=== PATIENT | male | born 1975 | race Two or more races ===

== ENCOUNTER 2020-11-08 13:19 | Outpatient (CLI) | payer MEDICARE, OTHER | END 2020-11-08 23:59 | disposition home or self-care (01) | LOC: WOU 13:19 | PROVIDERS: ATTEND Podiatrist Foot & Ankle Surgery | DX: B35.3 Tinea pedis (principal); B35.1 Tinea unguium; E11.42 Type 2 diabetes mellitus with diabetic polyneuropathy; Z79.84 Long term (current) use of oral hypoglycemic drugs; F17.200 Nicotine dependence, unspecified, uncomplicated; F20.9 Schizophrenia, unspecified; F19.21 Other psychoactive substance dependence, in remission; B18.2 Chronic viral hepatitis C; Z79.899 Other long term (current) drug therapy | CPT/HCPCS: G0463 ==

== ENCOUNTER 2021-01-10 13:15 | Outpatient (CLI) | payer MEDICARE, OTHER | END 2021-01-10 23:59 | disposition home or self-care (01) | LOC: WOU 13:15 | PROVIDERS: ATTEND Podiatrist Foot & Ankle Surgery | DX: B35.3 Tinea pedis (principal); B35.1 Tinea unguium; E11.42 Type 2 diabetes mellitus with diabetic polyneuropathy; Z79.84 Long term (current) use of oral hypoglycemic drugs; F20.9 Schizophrenia, unspecified; B18.2 Chronic viral hepatitis C; F19.21 Other psychoactive substance dependence, in remission; Z79.899 Other long term (current) drug therapy | CPT/HCPCS: G0463 ==

== ENCOUNTER 2021-05-16 13:26 | Outpatient (CLI) | payer MEDICARE, OTHER | END 2021-05-16 23:59 | disposition home or self-care (01) | LOC: WOU 13:26 | PROVIDERS: ATTEND Podiatrist Foot & Ankle Surgery | DX: B35.3 Tinea pedis (principal); B35.1 Tinea unguium; E11.42 Type 2 diabetes mellitus with diabetic polyneuropathy; F17.200 Nicotine dependence, unspecified, uncomplicated; F20.9 Schizophrenia, unspecified; F19.21 Other psychoactive substance dependence, in remission; B18.2 Chronic viral hepatitis C; Z79.84 Long term (current) use of oral hypoglycemic drugs; Z79.899 Other long term (current) drug therapy | CPT/HCPCS: G0463 ==